=== PATIENT | male | born 1965 | race Caucasian/White ===

== ENCOUNTER 2023-02-18 12:17 | Emergency (ER) | payer OTHER, SELFPAY ==
[2023-02-18 12:33] VITALS: BP 247/153; PULSE 72; RESP 18; TEMP 36.9; O2SAT 98; BMI 35.0
--- NOTE | 2023-02-18 13:07 | ED.NURSE ---
Pt was unable to remember which BP medication he was taking. Call placed to [facility] pharmacy where pt gets medications filled. Verified with pharmacy that pt takes Lisinopril 40 mg PO daily. Medication added to chart. Dr. Lopes notified.
[2023-02-18] MEDS: AMLODIPINE 10 MG TABLET PO (14:11)
[2023-02-18 14:22] LABS: Chloride* 108 mmol/L (96-114); Potassium* 4.2 mmol/L (3.6-5.1); Sodium* 138 mmol/L (135-149)
[2023-02-18 14:24] LABS: Est. Creatinine Clearance* 73.55; Estimated Glomerular Filt Rate 88 ml/min
[2023-02-18 14:25] LABS: Anion Gap 3 mEq/L (7-15); Blood Urea Nitrogen* 20 mg/dL (7-30); Calcium* 8.7 mg/dL (8.4-10.6); Carbon Dioxide* 27 mmol/L (20-32); Glucose* 117 mg/dL (60-115)
[2023-02-18 14:38] LABS: Troponin I* 0.03 ng/mL (0.01-0.04)
[2023-02-18 15:02] VITALS: BP 241/137
--- NOTE | 2023-02-18 17:19 | ED_ITS ---
HPI - General Adult General Date Seen: 02/18/23 Chief complaint: Abdominal Pain Stated complaint: Abdominal pain Time Seen by Provider: 02/18/23 12:50 History of Present Illness HPI narrative: This is a 57-year-old gentleman with a history of hypertension and previous right inguinal hernia repair who was referred to the ER today from urgent care for evaluation of left groin pain and elevated blood pressure. Patient is Citizen Of [place]speaking so history is obtained using the hospital Citizen [place] kitchen work supervisor. 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 Yesterday 1 of his coworkers was out so he had to do his coworkers job. He was pulling a cart with about 160 lb of paint on it. He had to pull the car over a hose and in doing so he twisted and injured his left groin. Since then he has been feeling a lump there. Yesterday the pain was fairly significant but he was able to sleep last night. Pain is worse this morning and is feeling a lump. He talk to his employer and they sent him to the urgent care. He is not having any vomiting. No diffuse abdominal pain. Bowel movements normal. Appetite normal. No fever. He also has a history of hypertension. He has known about it for at least 10 years. He is on a medication but does not know what it was. We were able to find out from [facility]'s that he is on lisinopril 40 mg daily. He says he follows with the [facility] here in [address] and last saw his doctor about 1 year ago. His doctor retired and and he was given numbers for 2 or 3 new doctors but has not had any follow-up visit since then. He is still taking his lisinopril and took it this morning. He has not had any recent headache. No chest pain. No trouble breathing. No swelling in his legs. No focal weakness or numbness. Of note he was initially seen in the urgent care and referred directly here to the ER because his blood pressure readings were elevated at roughly 230/130. According to the Urgent Care note he complained of some numbness or tingling. In fact though, he denies any numbness at all. He does not have any recent symptoms other than his left groin pain. Related Data Home Medications Medication Instructions Recorded Confirmed lisinopril 40 mg tablet 40 mg PO DAILY 02/18/23 02/18/23 Allergies Allergy/AdvReac Type Severity Reaction Status Date / Time No Known Drug Allergies Allergy Verified 02/18/23 12:56 [facility] Social History Smoking Status: Never smoker Do you use any of these nicotine containing products: None Second hand tobacco smoke exposure: No How often do you have a drink containing alcohol: never AUDIT-C Alcohol total score: 0 Non-prescribed substance use: denies use service: No Exam Narrative: Exam Narrative: Constitutional: Appears well-developed and well-nourished. Alert. Conversant. Non toxic. HENT: Head: Atraumatic. Nose: Nose normal. Mouth/Throat: Oral mucosa is clear and moist. no trismus. Pharynx normal. Tonsils symmetric. No tonsillar enlargement, erythema, or exudate. Eyes: Conjunctivae normal. EOM normal. Pupils equal, round, and reactive to light. No scleral icterus. Neck: Normal range of motion. Neck supple. No tracheal deviation present. No JVD. Cardiovascular: Normal rate, regular rhythm. No gallop. No friction rub. No murmur heard. Symmetric radial and PT artery pulses Pulmonary/Chest: Effort normal. No stridor. No respiratory distress. No wheezes. No rales. No rhonchi . No tenderness. Abdominal: Soft. Bowel sounds normal. No distension. No mass. No tenderness. No rebound. No guarding. The patient does have a palpable mass in the left inguinal region consistent with an inguinal hernia. It is mildly tender but not firm. No evidence for incarceration. The mass is most appreciable with the patient standing up. When I have the patient lay back in bed I am able to gently reduce the mass back into the abdomen. He does not have any other testicular pain or mass. He has a previous incision on the right inguinal ligament from previous inguinal hernia repair done years ago. Musculoskeletal: RUE: Normal range of motion. No tenderness. No deformity LUE: Normal range of motion. No tenderness. No deformity RLE: Normal range of motion. No edema. No tenderness. No deformity LLE: Normal range of motion. No edema. No tenderness. No deformity Lymph: No cervical adenopathy. Neurological: Mental status normal. Attention normal. Alert and oriented x3. GCS 15. Memory normal. Speech fluent. Cognition normal. Cranial Nerves intact II-XII except I did not formally test gag or visual acuity. EOMI. Palate elevates symmetrically and tongue protrudes in the midline. Strength: 5/5 trapezius on the right and left 5/5 deltoid on the right and left 5/5 biceps on the right and left 5/5 triceps on the right and left 5/5 fire extinguisher charger on the right and left 5/5 thumb opposition on the right and le ft 5/5 finger abduction on the right and le ft 5/5 hip flexors (L3) on the right and le ft 5/5 quadriceps (L4) on the right and lef t 5/5 tibialis anterior on the right and l eft 5/5 EHL (L5) on the right and left 5/5 gastrocnemius (S1) on the right and left 5/5 hamstring on the right and left Sensation intact to light touch in both upper extremities (C4-T1) Sensation intact to light touch in Both lower extremities (L4-S1). Finger to nose and coordination normal. Gait normal. Skin: Skin is warm and dry. No rash noted. No pallor. Normal capillary refill. Psychiatric: Normal mood. Normal affect. Const: Vital Signs, click to edit/add: Vital Signs - 24 hr 02/18/23 12:33 02/18/23 15:02 Temperature 98.5 F Pulse Rate [Pulse Oximeter] 72 Respiratory Rate 18 Blood Pressure [Ri ght Upper Arm] 247/153 H 241/137 H Pulse Oximetry 98 Oxygen Delivery Me thod Room Air Course Vital Signs Vital signs: Initial Vital Signs Temperature 98.5 F 02/18/23 12:33 Temperature Source Temporal Artery Scan 02/18/23 12:33 Pulse Rate 72 02/18/23 12:33 Pulse Rhythm Regular 02/18/23 12:33 Respiratory Rate 18 02/18/23 12:33 Blood Pressure 247/153 H 02/18/23 12:33 Blood Pressure Mean 184 H 02/18/23 12:33 Blood Pressure Position Sitting 02/18/23 12:33 Pulse Oximetry 98 02/18/23 12:33 Oxygen Delivery Method Room Air 02/18/23 12:33 Vital Signs Temperature 98.5 F 02/18/23 12:33 Pulse Rate 72 02/18/23 12:33 Respiratory Rate 18 02/18/23 12:33 Blood Pressure 247/153 H 02/18/23 12:33 Pulse Oximetry 98 02/18/23 12:33 Oxygen Delivery Method Room Air 02/18/23 12:33 Temperature 98.5 F 02/18/23 12:33 Pulse Rate 72 02/18/23 12:33 Respiratory Rate 18 02/18/23 12:33 Blood Pressure 241/137 H 02/18/23 15:02 Pulse Oximetry 98 02/18/23 12:33 Oxygen Delivery Method Room Air 02/18/23 12:33 Medications Administered Medications: Discontinued Medications Generic Name Dose Route Start Last Admin Trade Name Alexus PRN Reason Stop Dose Admin Amlodipine Besylate 10 mg 02/18/23 13:49 02/18/23 14:11 Amlodipine 10 Mg Tablet PO 02/18/23 13:50 10 mg ONCE ONE Administration Medical Decision Making MDM Narrative Medical decision making narrative: This is a 57-year-old male with a complex presentation. There are 3 separate intermingled problems. 1. He came to the urgent care today with left groin pain and swelling that began after he injured his left groin a while pulling a heavy cart at work yesterday. Exam here is consistent with a sliding inguinal hernia which I was able to red uce for the patient here in the ER. After reduction the patient is still having mild discomfort but most pain is resolved. At this point no evidence for any acute surgical emergency such as incarceration, strangulation, or associated obstruction. Discussed with our on-call surgeon, Dr. Cox and she advises outpatient follow-up in clinic for outpatient hernia repair. Discussed the plan of care with the patient through his kitchen work supervisor. He verbalizes understanding. I discussed that there is a high likelihood that the hernia recurred will recur when he stands up was walking around her lifting objects. He is provided with a note with work restrictions to avoid lifting more than 5 lb, bending, twisting, or other exertional activity. I discussed with his employer by phone and she verbalizes their ability to get him a job where he can sit down and avoid strenuous activity. 2. Hypertension. Urgent Care was very concerned about his elevated blood pressure readings. There is known history of hypertension in the past, and it turns out he is currently on lisinopril . No concerning symptoms of chest pain , severe headache, neurologic deficits. The workup here is negative and the darby carter does not have any clinical, laboratory, ecg or historical signs of end- organ dysfunction. There is no signs of hypertensive emergency or urgency. Supportive outpatient management is therefore indicated with close follow-up of primary care physician. Given data obtained here in ED, will add amlodipine 10 mg daily for therapy at this time and encouraged serial blood pressure monitoring at home to aid primary in decision making regarding hypertension. Although there is no hypertensive emergency, he would likely not be a candidate for general anesthesia or hernia repair until his blood pressure is better controlled. Also discussed dietary and lifestyle modification for blood pressure control. The patient says that he gets his primary care through the [facility] and last had a checkup with his doctor about a year ago. Since then his doctor has retired so he has not seen a new doctor. He is still taking his medication. I tried to call through to the [facility] to help arrange outpatient follow-up. They do not have any records of this patient being seen since 2018. And they have no records of treatment for hypertension. I did talk with the on-call provider, Dr. Can. Our plan will be to add amlodipine 10 mg daily in addition to his lisinopril today. The patient will call the [facility] tomorrow morning to arrange a follow-up visit with either Dr. Can or Dr. Melendez. They will be able to get him in within 1 week. 3. Social- this patient actually has 2 names. At work (and here at the hospital) he is registered as Gustavo Brandt, 65. He has another name with which he gets his care through the [facility] and his presciption through [employer]. That name is Arnulfo Thrasher. His birthday under that name is [birth year]. I will hand write a prescription under Arnulfo Thrasher for his amlodipine. Amlodipine 10 mg daily-1 tablet daily. dispense # 30 Lab Data Labs: Lab Results 02/18/23 Range/Units 13:58 Sodium 138 (135-149) mmol/L Potassium 4.2 (3.6-5.1) mmol/L Chloride 108 (96-114) mmol/L Carbon Dioxide 27 (20-32) mmol/L Anion Gap 3 L (7-15) mEq/L BUN 20 (7-30) mg/dL Creatinine 1.0 (0.5-1.5) mg/dL Estimated Creat Clear 73.55 Estimated GFR 88 ml/min Glucose 117 H (60-115) mg/dL Calcium 8.7 (8.4-10.6) mg/dL Troponin I 0.03 (0.01-0.04) ng/mL Discharge Plan Discharge Clinical Impression: Hypertension, Inguinal hernia Patient Disposition: Home, Self-Care Condition: Stable Instructions: Inguinal Hernia (ED), Hypertension (ED) Additional Instructions: Continue on your current blood pressure medication (lisinopril) and add the new medication (amlodipine) Call the [facility] [phone] tomorrow morning at 8:00 a.m. to schedule a follow-up appointment to recheck for your blood pressure and your hernia. You can ask for an appointment with Dr. Can or Dr. Melendez. You will need to see your doctor for a blood pressure check and to get referred to a surgeon. After you see the surgeon you can get the operation to repair your hernia . If you have worsening pain in your hernia, or if you are not able to slide the bulge back inside, come back to the ER right away. If you develop bad headache, chest pain, blurry vision, stroke symptoms, come back to the ER right away. Prescriptions: No Action lisinopril 40 mg tablet 40 mg PO DAILY Follow Up/Referrals: Provider,Not a Local [Primary Care Provider] - Stand Alone Forms: [employer] Info Instructions
== END 2023-02-18 17:25 | disposition home or self-care (01) ==
PROVIDERS: Emergency Provider Emergency Medicine
DX: K40.90 Unilateral inguinal hernia, without obstruction or gangrene, not specified as recurrent (principal); I10 Essential (primary) hypertension
CPT/HCPCS: 36415; 80048; 84484; 93005; 99284; A9270

== ENCOUNTER 2023-04-06 10:05 | Day surgery (SDC) | payer OTHER, SELFPAY ==
[2023-04-06] VITALS (11 sets, daily range): BP systolic 111–139; BP diastolic 61–82; PULSE 58–78; RESP 14–16; TEMP 36.6–36.9; O2SAT 96–98; BMI 32.8
--- OUTSIDE RECORDS SUMMARY | 2023-04-06 10:09 | XMS_ITS | Clinical Summary ---
Author Name Unknown Organization [facility] Address [place], [place] [address] Care Team Providers Care Supervisor [employer] Name Role Phone Pcp, No Primary Care Provider Unavailabl e Allergies No known active allergies Medications No known medications Active Problems Problem Noted Date Diagnosed Date Personal history of tobacco use, presenting hazards to health Encounters Date Type Department Care Team Description 02/18/2023 Telephone [facility] [address] [place] [address] Chaya Can, from Last 3 Months Immunizations Name Administration Dates Next Due Tdap 05/06/2006 Family History Medical History Relation Name Comments Diabetes Other Relation Name Status Comments Other Social History Tobacco Use Types Packs/Day Years Used Date Smoking Tobacco: Former Cigarettes 0.3 3 Smokeless Tobacco: Never Tobacco Cessation:Counseling Given: Yes Alcohol Use Standard Drinks/Week Comments No 0 (1 standard drink = 0.6 oz pur e alcohol) PHQ-2 Answer Date Recorded PHQ-2 Score 0 05/16/2018 Sex and Gender Information Value Date Recorded Sex Assigned at Not on file Gender Identity Not on file Sexual Orientation Not on file Obstetrics History Last Filed Vital Signs Vital Sign Reading Time Taken Comments Blood Pressure 116/74 11/02/2017 4:32 PM CDT Pulse 81 11/02/2017 4:32 PM CDT Temperature 36.6 ??C (97.8 ??F) 11/02/2017 4:32 PM CD T Respiratory Rate - - Oxygen Saturation 98% 11/02/2017 4:32 PM CDT Inhaled Oxygen Concentration - - Weight 104.8 kg (231 lb) 11/02/2017 4:32 PM CDT Height 171 cm (5' 7.32) 11/02/2017 4:32 PM CDT Body Mass Index 35.83 11/02/2017 4:32 PM CDT Plan of Treatment Health Maintenance Due Date Last Done Comments COVID-19 vaccine series (#1) 06/13/1966 HIV for age 15-65 1980 Hepatitis C screening for ag e 18-79 12/14/1983 Colonoscopy through age 75 2010 Lipids for age 45-75 05/06/2011 05/06/2006 Zoster (shingles) series for age 50+ (1 of 2) 12/14/2015 Tetanus booster 05/06/2016 05/06/2006 BMI (ht and wt on same day) for age 18+ 11/02/2018 11/02/2017, 06/02/2017, 05/17/2017 Depression screening for age 12+ 11/02/2018 11/02/2017 Influenza for age 50-64 11/13/2022 Tdap Completed 05/06/2006 Pneumococcal series for age 6-64 Aged Out No longer eligible b ased on patient's age to complete this topic Care Teams Supervisor [employer] Relationship Specialty Start Date End Date Pcp, No . PCP - General 10/19/17
--- NOTE | 2023-04-06 11:12 | W.ANESCHARGE ---
Anesthesia Charges Start Date/Time Anesthesia Start Date: 04/06/23 Anesthesia Start Time: 11:24 Stop Date/Time Anesthesia Stop Date: 04/06/23 Anesthesia Stop Time: 13:06
--- NOTE | 2023-04-06 11:13 | P.GSOP_ITS ---
Operative Note Date of procedure: 04/06/23 Pre-op diagnosis: 1. Symptomatic left inguinal hernia. Post-op diagnosis: 1. Moderately-sized indirect left inguinal hernia. Type of Procedure: 1. Open left inguinal hernia repair with mesh. Indications: 57-year-old male s/p open right inguinal hernia repair presented to clinic for evaluation of left inguinal hernia. Patient states that he injured himself at work he when he was pulling a agnes with paint. He immediately felt pain in the lower abdomen. The pain continued. He then noticed a bulge in the left groin. The pain is usually bothering him when he is sitting up or bending down, lying down made the pain better. On clinical exam with the patient standing up there was a small to moderately sized left inguinal hernia palpated and that was reducible. Given patient's clinical history and his physical exam, an open left inguinal hernia repair was recommended. The procedure was discussed in detail. The risks associated procedure including infection, bleeding, injury to preperitoneal organs, nerve pain, and hernia recurrence were all discussed with the patient, and he agreed to proceed. Procedure Description: After discussing the risks and benefits of the procedure, the patient signed informed consent.? The operative site was marked and the patient was brought to the operating room and placed on the operating table in supine position.? Care was taken to pad the patient's pressure points.?? The patient was then intubated by anesthesia.?? The operative site was then prepped and draped in the usual sterile fashion.? A time-out was then performed. Surgical site was prepped and draped in sterile fashion. Site of the incision was marked with a marking pen and local anesthetic was injected. An oblique incision was made just above and medial to the left inguinal ligament. Subcutaneous tissue was dissected to external obliques. Superficial subcutaneous vascular branches were clamped, divided and tied with 3-0 Vicryl ties. Small incision was made through the external oblique aponeurosis with scalpel. I then used Metzenbaum scissors to dissect under external obliques and extend my incision. Mosquito clamps were placed on the edges of external oblique exposing the inguinal floor. The left Ilioinguinal nerve was identified and was going through the plain of dissection. The nerve was divided proximally and distally and a 3 cm segment of it was excised. This was not sent to pathology. I then identified the spermatic cord and the hernia sac. I bluntly dissected subcutaneous tissues in order to place Cade drain around the cord structures. Cremasteric fibers were peeled off and dissected off the hernia sac and cord structures. The indirect hernia sac was identified and was moderately-sized. It was from the spermatic cord bluntly and with cautery. The indirect hernia sac was incised and examined from the inside. Sigmoid colon and its epiploic fat was adjacent to the hernia sac but was not incarcerated in the hernia sac. A stitch using 2-0 Vicryl was placed near the base of the hernia sac through the sac and the hernia sac tied off. Hernia sac was then excised and not sent to pathology. The cut edge of the hernia sac was then oversewn with a running Vicryl suture. This was then pushed into preperitoneal space through the internal ring. Surgical field was examined for bleeding and hemostasis was achieved with cautery and Vicryl ties. A Bard mesh onlay was also used for hernia repair. The mesh onlay was sutured in place with interrupted 0-0 Neurolon sutures to the conjoint tendon medially and shelving edge laterally, pubic tubercle inferiorly. Simple interrupted sutu res were placed using 0-0 Neurolon at the base of internal inguinal ring making it only large enough to fit a tip of one finger through. Spermatic cord was placed back into scrotum. Cade drain was removed. External oblique aponeurosis was closed with a running 3-0 Vicryl. Additional local anesthetic was injected into subcutaneous tissues. Jillian's fascia and subcutaneous tissue was re-approximated with interrupted Vicryl stitches. Skin incision was closed with 4-0 Monocryl subcuticular stitch. Steri strips and sterile dressing were applied over incision. All counts were correct at the end of the case. Patient tolerated this procedure well and was transferred to PACU in stable condition. Findings: Moderately-sized indirect hernia sac. Anesthesia: GETA Surgeon: Levi Jon MD Estimated blood loss (mL): 5 Condition: stable Disposition: PACU
--- NOTE | 2023-04-06 11:13 | W.PM.H&PU ---
History & Physical Update History & Physical Update H&P Reviewed and patient assessed: No changes noted
[2023-04-06] MEDS: CEFAZOLIN 2 GM INJ IVP (11:35)
[2023-04-06] MEDS: BUPIVACAINE 0.25% 30 ML 10 ML INJECTION (11:48)
[2023-04-06] MEDS: LACTATED RINGERS 1000 ML 1,000 ML 100 ML IV ×2 (11:49→13:18)
--- NOTE | 2023-04-06 13:06 | W.ANESCHARGE ---
Anesthesia Charges Start Date/Time Anesthesia Start Date: 04/06/23 Anesthesia Start Time: 11:24 Stop Date/Time Anesthesia Stop Date: 04/06/23 Anesthesia Stop Time: 13:06
[2023-04-06] MEDS: HYDROCODONE-ACETAMIN 5-325 MG 1 TAB PO (13:47)
== END 2023-04-06 14:44 | disposition home or self-care (01) ==
PROVIDERS: PCP Internal Medicine; Visit Provider Surgery
PROC: (CPT 49505; principal; 2023-04-06 11:00)
DX: K40.90 Unilateral inguinal hernia, without obstruction or gangrene, not specified as recurrent (principal)
CPT/HCPCS: 49505; 00830; T1013; A9270; C1781; J0665; J0690; J1100; J1885; J2250; J2371; J2405; J2704; J2710; J3010; J7120